=== PATIENT | male | born 1950 | race Hispanic/Latino ===

== ENCOUNTER 2024-11-16 13:45 | Emergency (ER) | payer MEDICARE, MEDICAID ==
[~2024-11-16 13:45] MED LIST: Heparin 10,000 UNITS/ 10 ML VIAL ONE
[2024-11-16 14:58] LABS: #Basophils 0.03 10x3/uL (0.0-0.2); #Eosinophils Less than 0.03 10x3/uL (0.0-0.7); %Basophils 0.3 % (0.0-1.0); %Eosinophils 0.1 % (0.0-10.0); %Lymphocytes 4.3 % (21.0-51.0); %Monocytes 5.4 % (0.0-10.0); %Neutrophils 89.5 % (42.0-75.0); Hematocrit 36.2 % (42.0-52.0); Hemoglobin 11.7 g/dL (14.0-18.0); Mean Corpuscular HGB CONC 32.3 g/dL (32.0-36.0); Mean Corpuscular Hemoglobin 33.9 pg (27.0-31.0); Mean Corpuscular Volume 104.9 fL (78.0-98.0); Mean Platelet Volume 8.6 fL (7.4-10.4); Platelet Count 242 10x3/uL (130-400); RBC Distribution Width 13.6 % (11.5-14.5); Red Blood Cell (RBC) Count 3.45 mill/uL (4.70-6.10)
[2024-11-16 15:14] LABS: Lipase 36 U/L (8-78)
[2024-11-16 15:17] LABS: Acetaminophen Less than 10 mcg/mL (Less than 10); Alcohol Less than 10.0 mg/dL (Less than 10); Salicylate Less than 8.0 mg/dL (Less than 8.0)
[2024-11-16 15:39] LABS: ALT (SGPT) 13 U/L (8-55); AST (SGOT) 20 U/L (5-34); Albumin 3.4 g/dL (3.4-4.8); Alkaline Phosphatase 82 U/L (40-110); Anion Gap 26 mmol/L (10-20); BUN (Urea Nitrogen) 93 mg/dL (8.4-25.7); Bilirubin, Total 0.6 mg/dL (0.2-1.2); Calc. Creatinine Clearance 0 mL/min (70-130); Calcium 9.1 mg/dL (7.8-10.44); Carbon Dioxide 14 mmol/L (23-31); Chloride 108 mmol/L (98-107); Estimated GFR 3; Globulin 3.5 g/dL (2.4-3.5); Glucose 63 mg/dL (83-110); Potassium 6.1 mmol/L (3.5-5.1); Protein, Total 6.9 g/dL (5.8-8.1); Sodium 142 mmol/L (136-145); Troponin I 0.769 ng/mL (< 0.028)
[2024-11-16 16:08] LABS: Amphetamine Not Detected (NotDetected); Barbiturates Screen Not Detected (NotDetected); Benzodiazepine Screen Not Detected (NotDetected); Cocaine Metabolite Screen Not Detected (NotDetected); Methadone Not Detected (NotDetected); Methamphetamine Not Detected (NotDetected); Opiate Screen Not Detected (NotDetected); Oxycodone Screen Not Detected (NotDetected); Phencyclidine (PCP) Not Detected (NotDetected); THC/Cannabinoid Screen Not Detected (NotDetected); Tricyclic Screen Not Detected (NotDetected)
[2024-11-16 16:21] LABS: Bacteria/HPF None Seen HPF (None Seen); Bilirubin Negative (Negative); Blood, Urine 1+ (Negative); CAUTI Indications for Culture Alt mental st,lethar; Clarity Clear (Clear); Glucose, Urine (Dipstick) 70 mg/dL (Negative); Ketone, Urine Negative (Negative); Leukocyte Negative Leu/uL (Negative); Nitrite Negative (Negative); Protein, Urine (Dipstick) 100 mg/dL (Neg-Trace); Specific Gravity, Urine 1.015 (1.002-1.036); Squamous Epithelial 0-3 HPF (0-3); Urobilinogen Normal mg/dL (Less than 2); WBC/HPF 0-3 HPF (0-3); Yeast-Budding Rare HPF (None Seen); pH, Urine 5.5 (5.0-9.0)
[2024-11-16 16:23] LABS: Urine Culture Reflex No No
[2024-11-16 17:59] LABS: Hep C Index 0.25 S/CO (0-0.79)
[2024-11-16 18:12] LABS: HBSAB Concentration 104.37 mIU/mL; HBsAg Index 0.21 S/CO (0-0.99); Hep B Surf AB REACTIVE (NonReactive); Hep B Surf Ag NONREACTIVE S/CO (NonReactive); Hep C IgG Ab NONREACTIVE S/CO (NonReactive)
[2024-11-16 18:41] LABS: Hep B Core Total Ab REACTIVE (NonReactive); Hep B Core Total Index 2.17 S/CO (0-0.79)
== END 2024-11-16 21:34 | disposition home or self-care (01) ==
LOC: ERS 13:45
DX: E87.5 Hyperkalemia (principal); E11.649 Type 2 diabetes mellitus with hypoglycemia without coma; I13.2 Hypertensive heart and chronic kidney disease with heart failure and with stage 5 chronic kidney disease, or end stage renal disease; E11.22 Type 2 diabetes mellitus with diabetic chronic kidney disease; N18.6 End stage renal disease; E78.5 Hyperlipidemia, unspecified; I48.91 Unspecified atrial fibrillation; I50.9 Heart failure, unspecified; Z99.2 Dependence on renal dialysis; Z79.82 Long term (current) use of aspirin; Z75.8 Other problems related to medical facilities and other health care; Z79.4 Long term (current) use of insulin; Z79.899 Other long term (current) drug therapy
CPT/HCPCS: 36415; 36416; 70450; 71045; 80053; 80306; 80307; 81001; 82140; 83605; 83690; 84443; 84484; 85025; 86704; 86706; 86803; 87040; 87340; 93005; 94760; J1644

== ENCOUNTER 2024-11-23 10:56 | Inpatient (IN) | payer MEDICARE, MEDICAID ==
[2024-11-23 12:01] LABS: #Basophils 0.06 10x3/uL (0.0-0.2); %Basophils 0.7 % (0.0-1.0); %Eosinophils 3.5 % (0.0-10.0); %Lymphocytes 12.8 % (21.0-51.0); %Monocytes 10.6 % (0.0-10.0); Hematocrit 35.7 % (42.0-52.0); Hemoglobin 11.1 g/dL (14.0-18.0); Mean Corpuscular HGB CONC 31.1 g/dL (32.0-36.0); Mean Corpuscular Hemoglobin 33.9 pg (27.0-31.0); Mean Corpuscular Volume 109.2 fL (78.0-98.0); Mean Platelet Volume 9.2 fL (7.4-10.4); Platelet Count 203 10x3/uL (130-400); RBC Distribution Width 13.5 % (11.5-14.5); Red Blood Cell (RBC) Count 3.27 mill/uL (4.70-6.10)
[2024-11-23 12:02] LABS: Bacteria/HPF None Seen HPF (None Seen); Bilirubin Negative (Negative); Blood, Urine Negative (Negative); CAUTI Indications for Culture Alt mental st,lethar; Clarity Clear (Clear); Glucose, Urine (Dipstick) 200 mg/dL (Negative); Ketone, Urine Negative (Negative); Leukocyte Negative Leu/uL (Negative); Nitrite Negative (Negative); Protein, Urine (Dipstick) 300 mg/dL (Neg-Trace); RBC/HPF 0-3 HPF (0-3); Specific Gravity, Urine 1.013 (1.002-1.036); Squamous Epithelial None Seen HPF (0-3); Urobilinogen Normal mg/dL (Less than 2); WBC/HPF 0-3 HPF (0-3)
[2024-11-23 12:06] LABS: Urine Culture Reflex No No
[2024-11-23 12:21] LABS: ALT (SGPT) 15 U/L (8-55); AST (SGOT) 22 U/L (5-34); Albumin 3.2 g/dL (3.4-4.8); Alkaline Phosphatase 91 U/L (40-110); Anion Gap 20 mmol/L (10-20); BUN (Urea Nitrogen) 52 mg/dL (8.4-25.7); Bilirubin, Total 0.4 mg/dL (0.2-1.2); Calc. Creatinine Clearance 0 mL/min (70-130); Calcium 9.1 mg/dL (7.8-10.44); Carbon Dioxide 25 mmol/L (23-31); Chloride 103 mmol/L (98-107); Estimated GFR 5; Glucose 120 mg/dL (83-110); Potassium 5.2 mmol/L (3.5-5.1); Protein, Total 7.2 g/dL (5.8-8.1); Sodium 143 mmol/L (136-145)
[2024-11-23] MEDS ORDERED: Dextrose 5% in Water 1,000 ML IV PRN (13:30)
[2024-11-23] MEDS ORDERED: Acetaminophen 325 MG TAB PO PRN (13:30)
[2024-11-23] MEDS ORDERED: Dextrose 50% Abboject 50 ML SYRINGE SLOW IVP PRN (13:30)
[2024-11-23] MEDS ORDERED: Glucagon 1 MG/ML KIT IM PRN (13:30)
[2024-11-23 23:28] VITALS: BMI 36.8
[2024-11-24] MEDS: Heparin 5,000 UNITS/ML VIAL SC SCH ×3 (00:52→09:00)
[2024-11-24 04:58] LABS: Anion Gap 17 mmol/L (10-20); BUN (Urea Nitrogen) 25 mg/dL (8.4-25.7); Calc. Creatinine Clearance 15 mL/min (70-130); Carbon Dioxide 25 mmol/L (23-31); Chloride 103 mmol/L (98-107); Estimated GFR 9; Glucose 87 mg/dL (83-110); Potassium 4.3 mmol/L (3.5-5.1); Sodium 141 mmol/L (136-145)
[2024-11-24] MEDS: NIFEdipine XL 30 MG ER.TAB PO SCH (13:01)
[2024-11-24] MEDS: Sevelamer Carbonate 800 MG TAB PO SCH (13:01)
[2024-11-24] MEDS: Atorvastatin Calcium 20 MG TAB PO SCH (20:26)
[2024-11-25 10:38] VITALS: BMI 36.8
[2024-11-25] MEDS ORDERED: Heparin 10,000 UNITS/ 10 ML VIAL ONE (10:50)
[2024-11-25] MEDS: NIFEdipine XL 30 MG ER.TAB PO SCH (13:38)
[2024-11-26 06:41] LABS: #Basophils 0.06 10x3/uL (0.0-0.2); %Basophils 0.8 % (0.0-1.0); %Eosinophils 7.8 % (0.0-10.0); %Lymphocytes 17.9 % (21.0-51.0); %Monocytes 12.8 % (0.0-10.0); %Neutrophils 60.4 % (42.0-75.0); Hematocrit 33.4 % (42.0-52.0); Hemoglobin 10.9 g/dL (14.0-18.0); Mean Corpuscular HGB CONC 32.6 g/dL (32.0-36.0); Mean Corpuscular Hemoglobin 33.5 pg (27.0-31.0); Mean Corpuscular Volume 102.8 fL (78.0-98.0); Mean Platelet Volume 9.2 fL (7.4-10.4); Platelet Count 188 10x3/uL (130-400); RBC Distribution Width 12.6 % (11.5-14.5); Red Blood Cell (RBC) Count 3.25 mill/uL (4.70-6.10)
[2024-11-26 07:00] LABS: Calc. Creatinine Clearance 14 mL/min (70-130); Estimated GFR 8
[2024-11-26 07:01] LABS: Albumin 3.3 g/dL (3.4-4.8); Anion Gap 13 mmol/L (10-20); BUN (Urea Nitrogen) 32 mg/dL (8.4-25.7); BUN/Creatinine Ratio 4.73; Calcium 9.2 mg/dL (7.8-10.44); Carbon Dioxide 30 mmol/L (23-31); Chloride 98 mmol/L (98-107); Glucose 115 mg/dL (83-110); Magnesium 2.3 mg/dL (1.6-2.6); Phosphorus 4.9 mg/dL (2.3-4.7); Potassium 4.1 mmol/L (3.5-5.1); Sodium 137 mmol/L (136-145)
[2024-11-26 07:03] LABS: Hemoglobin A1c 6.7 % (4.0-6.0)
[2024-11-26] MEDS: Aspirin 81 mg Enteric Coated Tablet PO SCH (08:39)
[2024-11-26] MEDS ORDERED: Heparin 10,000 UNITS/ 10 ML VIAL ONE (10:45)
[2024-11-26] MEDS: Insulin Regular, Human 100 UNIT/ML 10 ML VIAL SC PRN (12:03)
[2024-11-27] MEDS ORDERED: Heparin 10,000 UNITS/ 10 ML VIAL ONE (11:00)
[2024-11-27] MEDS: Cyanocobalamin 1000 MCG/ML VIAL IM SCH (16:04)
[2024-11-27] MEDS: glipiZIDE XL 2.5 mg ER.TAB PO SCH (16:04)
[2024-11-27 16:51] VITALS: TEMP 97.5
[2024-11-27 17:27] VITALS: BP 128/76
== END 2024-11-27 17:13 | disposition home health service (06) | DRG 637 ==
LOC: ERS 10:56 → ERHOLD 13:16 → 2NO 22:56 → T4-B 11-24 15:50 → OBSVTOIN 11-24 15:58
PROVIDERS: ADMIT Family Medicine; ATTEND Internal Medicine
DX: E11.649 Type 2 diabetes mellitus with hypoglycemia without coma (principal); J96.01 Acute respiratory failure with hypoxia; I13.0 Hypertensive heart and chronic kidney disease with heart failure and stage 1 through stage 4 chronic kidney disease, or unspecified chronic kidney disease; E11.22 Type 2 diabetes mellitus with diabetic chronic kidney disease; N18.6 End stage renal disease; Z99.2 Dependence on renal dialysis; E78.5 Hyperlipidemia, unspecified; Z98.890 Other specified postprocedural states; I50.9 Heart failure, unspecified; Z79.82 Long term (current) use of aspirin; Z79.4 Long term (current) use of insulin; D63.1 Anemia in chronic kidney disease; E83.39 Other disorders of phosphorus metabolism; Z79.01 Long term (current) use of anticoagulants; E87.5 Hyperkalemia
CPT/HCPCS: 36415; 36416; 70450; 71045; 71046; 80048; 80053; 80069; 81001; 82607; 83036; 83605; 83690; 83735; 84484; 85025; 87040; 87086; 90935; 93005; 96372; 96374; 96375; 96376; 99285; G0257; G0378; J0696; J1644; J1815; J3420; J7999